=== PATIENT | female | born 1980 | race Caucasian/White ===

== ENCOUNTER 2017-03-24 11:28 | Emergency (ER) | payer OTHER ==
[2017-03-24 11:31] VITALS: BP 124/86; PULSE 102; RESP 20; TEMP 98.5; O2SAT 99
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
[2017-03-24] MEDS ORDERED: SULFAMETHOXAZOLE-TRIMETHOPRIM DS 800-160 MG TAB PO ONE (12:45)
[2017-03-24] MEDS ORDERED: CEPHALEXIN MONOHYDRATE 500 MG CAP PO ONE (12:45)
[2017-03-24] MEDS ORDERED: BACT800T5 PO (12:46)
[2017-03-24] MEDS ORDERED: CEPH-460 PO (12:46)
--- NOTE | 2017-03-24 13:22 | RADRPT ---
EXAM DATE/TIME: 03/24/2017 12:32 [facility] COMPARISON: No previous studies available for comparison. INDICATIONS : Left foot pain and swelling. No prior trauma. MEDICAL HISTORY : None. SURGICAL HISTORY : None. ENCOUNTER: Initial ACUITY: 1 week PAIN SCORE: 5/10 LOCATION: Left lateral foot. FINDINGS: 3 views left foot. Bone alignment within normal limits. No evidence of fracture. Moderate sized plan tar calcaneal spur. CONCLUSION: No evidence of fracture. Anand Mahan MD on March 24, 2017 at 13:19 Board Certified Radiologist. This report was verified electronically.
== END 2017-03-24 14:15 | disposition home or self-care (01) ==
LOC: NEPC 11:28
DX: L03.116 Cellulitis of left lower limb (principal)
CPT/HCPCS: 73630; 99283